=== PATIENT | female | born 1935 | race Caucasian/White ===

== ENCOUNTER 2020-03-20 11:21 | Observation (INO) | payer MEDICARE ==
[~2020-03-20] VITALS: Ht 147.3 cm; Wt 52.0 kg
[2020-03-20 12:12] LABS: BASO % 0 % (0-3); EOS % 0 % (0-3); HEMATOCRIT 38.9 % (36.0-47.0); HEMOGLOBIN 13.1 g/dL (12.0-15.5); LYMPH # 1.5 x10^3/uL (1.0-4.8); LYMPH % 28 % (24-48); MEAN CORPUSCULAR HEMOGLOBIN 31 pg (25-35); MEAN CORPUSCULAR HGB CONC 34 g/dL (31-37); MEAN CORPUSCULAR VOLUME 92 fL (79-100); MONO # 0.5 x10^3/uL (0.0-1.1); MONO % 8 % (0-9); NEUT # 3.5 x10^3uL (1.8-7.7); NEUT % 64 % (31-73); PLATELET COUNT 86 x10^3/uL (140-400); RED BLOOD COUNT 4.21 x10^6/uL (3.50-5.40); RED CELL DISTRIBUTION WIDTH 12.8 % (11.5-14.5); WHITE BLOOD COUNT 5.5 x10^3/uL (4.0-11.0)
[2020-03-20] MEDS ORDERED: ACETAMINOPHEN 500 MG TABLET PO ONE ×2 (12:15→12:27)
[2020-03-20 12:18] LABS: CALCIUM 8.9 mg/dL (8.5-10.1); CREATININE 1.1 mg/dL (0.6-1.0); GFR 47.4; POTASSIUM 3.5 mmol/L (3.5-5.1)
[2020-03-20] MEDS ORDERED: IV NORMAL SALINE 50ML 50 ML ONE (12:27)
[2020-03-20] MEDS ORDERED: cefTRIAXone SODIUM 1 GM VIAL ONE (12:27)
[2020-03-20 12:30] LABS: ALBUMIN 3.2 g/dL (3.4-5.0); ALBUMIN/GLOBULIN RATIO 0.9 (1.0-1.7); C REACTIVE PROTEIN 62.3 mg/L (0-3.3); TOTAL BILIRUBIN 0.7 mg/dL (0.2-1.0); TOTAL PROTEIN 6.7 g/dL (6.4-8.2)
[2020-03-20] MEDS ORDERED: KETOROLAC 15 MG/ML VIAL. IVP ONE (12:30)
[2020-03-20] MEDS ORDERED: DEXAMETHASONE SOD PHOS 10 MG/ML VIAL. IV ONE (12:30)
[2020-03-20] MEDS ORDERED: IV NORMAL SALINE 500ML 500 ML IV ONE (12:30)
--- NOTE | 2020-03-20 12:38 | RAD ---
EXAM: CHEST 1 VIEW History: Shortness of breath COMPARISON: None available. TECHNIQUE: Single portable radiograph of the chest FINDINGS: The cardiac silhouette is unremarkable. The lungs are clear bilaterally. The costophrenic sulci are clear and well demarcated. IMPRESSION: No radiographic evidence of an acute cardiopulmonary process. Electronically signed by: Efra Bush MD (03/20/2020 12:36 PM) [id number]
[2020-03-20 12:44] LABS: BILIRUBIN,URINE NEG (NEG); CLARITY,URINE CLEAR; COLOR,URINE YELLOW; GLUCOSE,URINE NEG (NEG)
[2020-03-20 12:45] LABS: BACTERIA,URINE MOD /HPF (0-FEW); NITRITE,URINE NEG (NEG); SQUAMOUS EPITHELIAL CELL,UR MANY /LPF; UROBILINOGEN,URINE 0.2 mg/dL (0.2 mg/dL)
--- NOTE | 2020-03-20 13:17 | PHYS DOC ---
Past History Past Medical History: COPD, Diabetes Past Surgical History: No Surgical History Alcohol Use: None Adult General Chief Complaint Chief Complaint: SHORTNESS OF BREATH HPI HPI Patient is an 85-year-old female who presents to the emergency room complaining of generalized weakness, shortness of breath, fever, body aches. Patient was diagnosed with novel coronavirus yesterday. She states that her symptoms started 2 days ago and has progressively gotten worse. She is having a hard time getting around at home. She lives alone. Her family also is ill with coronavirus. She does not have any lung problems at baseline. She states that she has aching on bilateral chest and in her hips and back. This is been ongoing since her symptoms started. She has been spiking fevers at night and will wake up in the morning drenched in sweat. She denies any chest pain. She does not have any sore throat or other URI symptoms. Review of Systems Review of Systems Complete ROS is negative unless otherwise documented in HPI Current Medications Current Medications Current Medications Medications (Trade) Dose Ordered Sig/Kathy Start Time Stop Time Status Last Admin Dose Admin Acetaminophen (Tylenol) 500 mg STK-MED ONCE 03/20/20 12:27 03/20/20 12:28 DC Ceftriaxone Sodium 1 gm/ Sodium Chloride 50 ml @ 100 mls/hr 1X ONCE 03/20/20 12:30 03/20/20 12:59 Ceftriaxone Sodium (Rocephin) 1 gm STK-MED ONCE 03/20/20 12:27 03/20/20 12:28 DC Dexamethasone Sodium Phosphate (Decadron) 10 mg 1X ONCE 03/20/20 12:30 03/20/20 12:44 DC 03/20/20 12:37 10 MG Ketorolac Tromethamine (Toradol 15mg Vial) 15 mg 1X ONCE 03/20/20 12:30 03/20/20 12:44 DC 03/20/20 12:36 15 MG Sodium Chloride 50 ml @ As Directed STK-MED ONCE 03/20/20 12:27 03/20/20 12:27 DC Allergies Allergies Allergies Coded Allergies Type Severity Reaction Last Updated Verified No Known Drug Allergies 03/20/20 No Physical Exam Physical Exam General: Awake, alert, NAD. Well Nourished, well hydrated. Cooperative HEENT: Atraumatic,, airway patent, moist oral mucosa Neck: Supple, trachea midline Respiratory: Decreased breath sounds bilaterally, mild tachypnea, minimal crackles bilaterally CV: RRR, no murmur, cap refill <2 GI: Soft, nondistended, nontender, no masses MSK: No obvious deformities Skin: Warm, dry, intact Neuro: A&O x3, speech NL, sensory and motor grossly intact, no focal deficits Psych: Normal affect, normal mood, not suicidal or homicidal Current Patient Data Vital Signs Vital Signs Date Time Temp Pulse Resp B/P (MAP) Pulse Ox O2 Delivery O2 Flow Rate FiO2 03/20/20 12:25 99.0 67 18 118/69 (85) 98 Lab Results Laboratory Tests Test 03/20/20 11:40 03/20/20 11:58 White Blood Count 5.5 x10^3/uL (4.0-11.0) Red Blood Count 4.21 x10^6/uL (3.50-5.40) Hemoglobin 13.1 g/dL (12.0-15.5) Hematocrit 38.9 % (36.0-47.0) Mean Corpuscular Volume 92 fL (79-100) Mean Corpuscular Hemoglobin 31 pg (25-35) Mean Corpuscular Hemoglobin Concent 34 g/dL (31-37) Red Cell Distribution Width 12.8 % (11.5-14.5) Platelet Count 86 x10^3/uL (140-400) L Neutrophils (%) (Auto) 64 % (31-73) Lymphocytes (%) (Auto) 28 % (24-48) Monocytes (%) (Auto) 8 % (0-9) Eosinophils (%) (Auto) 0 % (0-3) Basophils (%) (Auto) 0 % (0-3) Neutrophils # (Auto) 3.5 x10^3uL (1.8-7.7) Lymphocytes # (Auto) 1.5 x10^3/uL (1.0-4.8) Monocytes # (Auto) 0.5 x10^3/uL (0.0-1.1) Eosinophils # (Auto) 0.0 x10^3/uL (0.0-0.7) Basophils # (Auto) 0.0 x10^3/uL (0.0-0.2) Sodium Level 135 mmol/L (136-145) L Potassium Level 3.5 mmol/L (3.5-5.1) Chloride Level 98 mmol/L (98-107) Carbon Dioxide Level 27 mmol/L (21-32) Anion Gap 10 (6-14) Blood Urea Nitrogen 19 mg/dL (7-20) Creatinine 1.1 mg/dL (0.6-1.0) H Estimated GFR (Cockcroft-Gault) 47.4 BUN/Creatinine Ratio 17 (6-20) Glucose Level 95 mg/dL (70-99) Lactic Acid Level 1.6 mmol/L (0.4-2.0) Calcium Level 8.9 mg/dL (8.5-10.1) Total Bilirubin 0.7 mg/dL (0.2-1.0) Aspartate Amino Transferase (AST) 22 U/L (15-37) Alanine Aminotransferase (ALT) 25 U/L (14-59) Alkaline Phosphatase 54 U/L (46-116) Lactate Dehydrogenase 225 U/L (81-234) Creatine Kinase 68 U/L (26-192) Troponin I Quantitative < 0.017 ng/mL (0-0.055) C-Reactive Protein 62.3 mg/L (0-3.3) H PL-Qvc-S-Type Natriuretic Peptide 368 pg/mL (0-449) Total Protein 6.7 g/dL (6.4-8.2) Albumin 3.2 g/dL (3.4-5.0) L Albumin/Globulin Ratio 0.9 (1.0-1.7) L Urine Collection Type Unknown Urine Color Yellow Urine Clarity Clear Urine pH 5.0 Urine Specific [place] 1.020 Urine Protein 30 mg/dl (NEG-TRACE) Urine Glucose (UA) Neg mg/dL (NEG) Urine Ketones (Stick) Trace mg/dL (NEG) Urine Blood Neg (NEG) Urine Nitrite Neg (NEG) Urine Bilirubin Neg (NEG) Urine Urobilinogen Dipstick 0.2 mg/dL (0.2 mg/dL) Urine Leukocyte Esterase Neg (NEG) Urine RBC 3-5 /HPF (0-2) Urine WBC 1-4 /HPF (0-4) Urine Squamous Epithelial Cells Many /LPF Urine Bacteria Mod /HPF (0-FEW) EKG EKG [] Radiology/Procedures Radiology/Procedures [] Heart Score Risk Factors: Risk Factors: DM, Current or recent (<one month) smoker, HTN, HLP, family history of CAD, obesity. Risk Scores: Risk Factors: DM, Current or recent (<one month) smoker, HTN, HLP, family history of CAD, obesity. Course & Med Decision Making Course & Med Decision Making Pertinent Labs and Imaging studies reviewed. (See chart for details) Patient is an 85-year-old female who presents to the emergency room complaining of multiple symptoms related to her novel coronavirus 19. Lab work was ordered to risk stratify the patient. At this time she does not appear to have any coagulation issues. Lab work overall is suggestive of Covid but she does not have any significant changes. Patient does appear to be mildly dehydrated and was given a small amount of fluids. She was also given Decadron Rocephin. She was given Toradol and Tylenol for her pain. Patient will be admitted to the hospital as she is working to breathe and is unable to walk to the bathroom. Dragon Disclaimer Dragon Disclaimer This electronic medical record was generated, in whole or in part, using a voice recognition dictation system. Departure Departure: Impression: Primary Impression: COVID-19 Additional Impression: Weakness Disposition: ADMITTED INPT THIS HOSP Condition: IMPROVED Referrals: CAROLYN HENDRICKS MD (PCP) Problem Qualifiers ALFRED REYNOLDS MD Mar 20, 2020 13:17
[2020-03-20 15:37] VITALS: BP 126/58
[2020-03-20] MEDS ORDERED: SIMV40TA18 PO (18:32)
[2020-03-20] MEDS ORDERED: METF500T16 PO (18:32)
[2020-03-20] MEDS ORDERED: INSU100I13 SQ (18:32)
[2020-03-20] MEDS ORDERED: LOSA1TAB25 PO (18:32)
[2020-03-20] MEDS ORDERED: CITA40TA12 PO (18:32)
[2020-03-20] MEDS ORDERED: METO25TA4 PO (18:32)
[2020-03-20] MEDS ORDERED: DOXY50TA8 PO (18:32)
[2020-03-20] MEDS ORDERED: METH5TAB4 PO (18:32)
--- NOTE | 2020-03-20 18:32 | NUR ---
pt arrived 1333 to rm 124, pt alert and oriented x4, vital signs stable, pt reports feeling "sweaty" glucose WNL. All belongings with patient. [facility] called for med list, operations supervisor 2nd shift will Dr Haney to restart medications.
--- NOTE | 2020-03-20 19:16 | NUR ---
Pt wishes to be DNR, says shes been a DNR past hospital visits.
[2020-03-20] MEDS ORDERED: ACETAMINOPHEN 500 MG TABLET PO PRN (19:45)
[2020-03-20 20:19] VITALS: BP 116/46
[2020-03-20] MEDS ORDERED: DEXTROSE 50% 25 GM / 50ML DISP.SYRIN. IV PRN (20:30)
[2020-03-20] MEDS: METOPROLOL TART IMMED RELEASE 25 MG TABLET. PO SCH (20:51)
[2020-03-20] MEDS ORDERED: SIMVASTATIN 40 MG TABLET. PO SCH (21:00)
[2020-03-20] MEDS ORDERED: INSULIN LISPRO 300 UNITS/3 ML VIAL. SQ SCH (21:00)
[2020-03-20] MEDS ORDERED: INSULIN GLARGINE SYRINGE. SQ SCH ×2 (21:00)
[2020-03-20 23:42] VITALS: BP 124/63
[2020-03-21 06:14] VITALS: BP 145/84
[2020-03-21] MEDS ORDERED: metFORMIN 500 MG TABLET PO SCH (08:00)
[2020-03-21] MEDS: INSULIN LISPRO 300 UNITS/3 ML VIAL. SQ SCH ×2 (08:00→12:24)
[2020-03-21] MEDS: METOPROLOL TART IMMED RELEASE 25 MG TABLET. PO SCH (08:06)
[2020-03-21] MEDS ORDERED: METHYLPHENIDATE HCL 5 MG TABLET PO SCH (09:00)
[2020-03-21] MEDS ORDERED: LOSARTAN 50 MG TABLET. PO SCH (09:00)
[2020-03-21] MEDS ORDERED: LACTOBACILLUS RHAMNOSUS GG 1 CAPSULE. PO SCH (09:00)
[2020-03-21] MEDS ORDERED: DOXYCYCLINE HYCLATE 100 MG TABLET PO SCH (09:00)
[2020-03-21] MEDS ORDERED: CITALOPRAM 20 MG TABLET. PO SCH (09:00)
--- NOTE | 2020-03-21 09:04 | HP ---
ADMIT DATE: 03/20/2020 ATTENDING PHYSICIAN: Dr. Jaimes. CHIEF COMPLAINT: Weakness. HISTORY OF PRESENT ILLNESS: The patient is an 85-year-old female admitted through the ED with symptomatic shortness of breath despite adequate saturations on room air, low-grade fevers, and body aches. She was diagnosed with coronavirus just yesterday. I do not have that report. Family has been ill too. Symptoms started 2 days ago. Her chest x-ray appears clear. She is not in any acute respiratory distress. There is a significant anxiety component. She lives alone. The son comes in to help her. 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 She is getting to a point where she cannot get around. She was spiking fevers at night, waking up drenched in sweat. She denied any chest pain. PAST MEDICAL HISTORY: Significant for type 2 diabetes, COPD despite no smoking history. She also has bilateral macular degeneration and deafness. ALLERGIES: She has no recorded drug allergies. CURRENT MEDICATIONS: Include the following: She was scheduled for citalopram, doxycycline, regular insulin, losartan, hydrochlorothiazide, metformin, Ritalin, metoprolol, and Zocor. She has no recorded drug allergies. SOCIAL HISTORY: Nonsmoker, nondrinker. FAMILY HISTORY: Father of heat stroke at age 42. Mom of heart failure at age 79. She lives alone. She has a son and a daughter who checks on her every day. REVIEW OF SYSTEMS: Significant for the constitutional symptoms, low-grade fevers, chills, myalgias, poor appetite. She has got some localized chest wall pain, no cough. All other systems reviewed and turned to be negative. PHYSICAL EXAMINATION: GENERAL: When I saw her, this is a pleasant elderly female. INITIAL VITAL SIGNS: Showed a blood pressure 145/84, pulse is 62 and regular, temperature 97.6, room air saturation 98%. HEENT: The right eye is scarred and completely blind. The left eye has limited vision. The pupils are reactive. She has arcus senilis. Ears are clear. NECK: Supple, no bruits or stridor. LUNGS: Good breath sounds. CARDIOVASCULAR: Showed regular heart tones. No gallops. ABDOMEN: Soft, no guarding, rebound tenderness. EXTREMITIES: Without edema. NEUROLOGIC: Focally intact. Speech is fluent. SKIN: Warm and dry. LABORATORY DATA: Hemoglobin 13.1 g/dL with a white count of 5500. Nonfasting blood sugar is now 145. Chemistry panel showed a sodium of 135, creatinine 1.1. Cardiac enzymes negative. Transaminases are normal. ASSESSMENT: 1. An 85-year-old female with COVID-19 infection. 2. Generalized myalgia. 3. Macular degeneration. 4. Chronic obstructive pulmonary disease. 5. Type 2 diabetes. PLAN: 1. Admit to the inpatient unit. 2. Physical therapy consultation. 3. Symptomatic control. She has not required supplemental oxygen. 4. Social service to see regarding a higher level of care. RAIZA JAIMES MD DR: LEILANI/beni JOB#: [id number] / [id number] CAROLYN Hoff MD
--- NOTE | 2020-03-21 10:46 | DS ---
DATE OF DISCHARGE: 03/21/2020 ATTENDING PHYSICIAN: Dr. Jaimes. FINAL DISCHARGE DIAGNOSES: 1. Recent COVID-19 infection. 2. Generalized myalgia. 3. Macular degeneration. 4. Chronic obstructive pulmonary disease. 5. Type 2 diabetes. HISTORY AND PHYSICAL: This 85-year-old female, who is blind and has hearing issues, lives alone with son checks in on her. Her sister recently came to visit. She was diagnosed with COVID-19. She was diagnosed at a local facility 3 days ago. She has had chills and myalgias. Her chest x-ray was not that abnormal. She did not require any supplemental oxygen. She was hospitalized and admitted for observation. PHYSICAL EXAMINATION: Please see my dictated note. Admission blood pressure was 124/63 mmHg, pulse is 62 and regular, temperature 97.6 degrees Fahrenheit, and her oxygen saturation 98% on room air. PERTINENT LABORATORY STUDIES: Hemoglobin 13.1, white count of 5500. Nonfasting blood sugar was high on the day of admission due to Decadron given in the ER, she was down to 145. Chemistry panel showed normal BUN and creatinine. Electrolytes, creatinine is 1.1 mg/dL. Transaminases were normal and troponin level was unremarkable. COURSE IN THE HOSPITAL: The patient was admitted overnight. She was given a regular diet and continued to have monitoring. She did not require any supplemental oxygen with adequate saturations and monitored by finger oximetry. Diet was advanced. Sugars were better controlled and she was doing quite well. I had a long talk with the son. The question is that are they able to take care of her. He will check in on her and manage her at home. Therefore, on the next hospital day, the patient was discharged home. There were no significant changes on her medication. She should continue her Celexa 40 mg daily, doxycycline, insulin, losartan, metformin, Ritalin, metoprolol, and Zocor dose is unchanged. She is a DNR per advanced directive. The patient was then discharged from our hospital in stable condition with explicit instructions and followup care with her son. RAIZA JAIMES MD DR: LEILANI/beni JOB#: [id number] / [id number] ecc CAROLYN HENDRICKS MD
[2020-03-21 11:08] VITALS: BP 96/45
--- NOTE | 2020-03-21 12:53 | NUR ---
NSG NOTE; DISCHARGE VERBAL AND WRITTEN DISCHARGE INSTRUCTIONS GIVEN TO PT AND SON WITH VERBAL UNDERSTANDING DISCHARGED TO HOME AT 1240 VIA W/C ACCOMP BY SON WHO PICKED HER UP
== END 2020-03-21 12:40 | disposition home health service (06) ==
LOC: ER 11:21 → INTOOBSV 13:07 → 1 SOUTH 13:07
PROVIDERS: ADMIT Hospitalist; ATTEND Hospitalist
DX: U07.1 COVID-19 (principal); M79.10 Myalgia, unspecified site; H35.30 Unspecified macular degeneration; J44.9 Chronic obstructive pulmonary disease, unspecified; E11.9 Type 2 diabetes mellitus without complications; F41.9 Anxiety disorder, unspecified; H54.40 Blindness, one eye, unspecified eye; H91.90 Unspecified hearing loss, unspecified ear; Z79.899 Other long term (current) drug therapy; Z79.4 Long term (current) use of insulin
CPT/HCPCS: 36415; 71045; 80053; 81001; 82550; 82947; 83605; 83615; 83880; 84484; 85025; 86140; 87086; 96365; 96372; 96375; 99284; G0378; J0696; J1100; J1815; J1885; J7040; G0379; 99285-25